=== PATIENT | female | born 1960 | race Caucasian/White ===

== ENCOUNTER 2021-09-28 23:41 | Emergency (ER) | payer BC ==
[2021-09-29 00:14] VITALS: BP 135/88; PULSE 104; TEMP 99.1
[2021-09-29] MEDS ORDERED: SODIUM CHLORIDE 0.9% 50 ML IVPB ONE (01:30)
--- NOTE | 2021-09-29 01:38 | XR ---
EXAMINATION TYPE: XR chest 2V DATE OF EXAM: 09/29/2021 COMPARISON: NONE HISTORY: Cough TECHNIQUE: 2 views FINDINGS: Heart is normal. Lungs are clear of infiltrate. There is no heart failure. There are no hil ar masses. Bony thorax is intact. There is no evidence of pleural effusion. IMPRESSION: No active cardiopulmonary disease.
[2021-09-29] MEDS ORDERED: BAMLANIVIMAB (EUA) 700 MG, ETESEVIMAB (EUA) 1,400 MG in SODIUM CHLORIDE 0.9% 50 ML IVPB ONE (01:45)
--- NOTE | 2021-09-29 01:48 | ED ---
SOB HPI - General Chief Complaint: Shortness of Breath Stated Complaint: Shortness of Breath, COVID Exposure Source: patient, RN notes reviewed Mode of arrival: ambulatory Limitations: no limitations - History of Present Illness Initial Comments: she is a 61-year-old female that presents to the emergency Department plana Covid like symptoms such as cough shortness of breath fatigue. Patient was exposed post to Covid and feels like she has it. She has not been tested. She was otherwise well-appearing. She did have a mild dry cough in the room during the exam interview. She denied any other symptoms. She denied chest pain headache nausea vomiting diarrhea constipation fever fatigue chills. - Related Data Allergies Allergy/AdvReac Type Severity Reaction Status Date / Time cefaclor [From [facility]] Allergy Anaphylaxis Verified 09/29/21 00:09 Review of Systems ROS Statement: Those systems with pertinent positive or pertinent negative responses have been documented in the HPI. ROS Other: All systems not noted in ROS Statement are negative. Past Medical History History of Any Multi-Drug Resistant Organisms: None Reported Past Surgical History: Bowel Resection, Orthopedic Surgery Additional Past Surgical History / Comment(s): stent in kidney placed and removed. Past Psychological History: No Psychological Hx Reported Smoking Status: Never smoker Past Alcohol Use History: None Reported Past Drug Use History: None Reported General Exam Limitations: no limitations General appearance: alert, in no apparent distress Head exam: Present: atraumatic, normocephalic, normal inspection Eye exam: Present: normal appearance, PERRL, EOMI. Absent: scleral icterus, conjunctival injection, periorbital swelling ENT exam: Present: normal exam, mucous membranes moist Neck exam: Present: normal inspection Respiratory exam: Present: normal lung sounds bilaterally. Absent: respiratory distress, wheezes, rales, rhonchi, stridor Cardiovascular Exam: Present: regular rate, normal rhythm, normal heart sounds. Absent: systolic murmur, diastolic murmur, rubs, gallop, clicks GI/Abdominal exam: Present: soft, normal bowel sounds. Absent: distended, tenderness, guarding, rebound, rigid Extremities exam: Present: normal inspection, full ROM, normal capillary refill. Absent: tenderness, pedal edema, joint swelling, calf tenderness Neurological exam: Present: alert, oriented X3 Psychiatric exam: Present: normal affect, normal mood Skin exam: Present: warm, dry, intact, normal color. Absent: rash Course Vital Signs 09/29/21 00:10 Temperature 99.1 F Pulse Rate 104 H Respiratory 24 Rate Blood Pressure 135/88 O2 Sat by Pulse 94 L Oximetry Medical Decision Making - Medical Decision Making 61-year-old female with upper respiratory tract symptoms. Covid test, chest x-ray ordered. Covid test positive. Chest x-ray shows no acute cardiopulmonary process. Patient does meet criteria for monoclonal antibodies given her history of asthma. Patient wishes to undergo infusion. Patient is agreeable with discharge home after infusion. Case discussed with Dr. Lorenzo, patient can discharge home. - Lab Data Lab Results 09/29/21 Range/Units 00:42 Coronavirus (PCR) Detected A (Not Detectd) - Radiology Data Radiology results: report reviewed, image reviewed Chest x-ray: No active cardiopulmonary disease. Disposition Clinical Impression: COVID Disposition: HOME SELF-CARE Condition: Stable Instructions (If sedation given, give patient instructions): Coronavirus Disease 2019 (COVID-19) Additional Instructions: Please return to the Emergency Department if symptoms worsen or any other concerns. Follow-up with primary care in 1-2 days. Quarantine per CDC guidelines. Is patient prescribed a controlled substance at d/c from ED?: No Referrals: None,Stated [Primary Care Provider] - 1-2 days Time of Disposition: 01:48
[2021-09-29 02:04] VITALS: RESP 22
[2021-09-29] MEDS ORDERED: ONDANSETRON 4 MG/2 ML VIAL IVP STA (02:07)
[2021-09-29] MEDS ORDERED: ACETAMINOPHEN TAB 325 MG TAB PO STA (02:59)
== END 2021-09-29 03:22 | disposition home or self-care (01) ==
LOC: EC 23:41
DX: U07.1 COVID-19 (principal); Z88.8 Allergy status to other drugs, medicaments and biological substances
CPT/HCPCS: 71046; 87635; 96375; 99285